=== PATIENT | male | born 1970 | race Caucasian/White ===

== ENCOUNTER 2025-08-17 14:56 | Outpatient (CLI) | payer BC, MEDICAID, SELFPAY ==
--- OUTSIDE RECORDS SUMMARY | 2025-07-07 17:00 | XMS_ITS | Encounter Summary ---
Author Organization [facility] ([place], [place], [place], [place], [place]) Address [address] [place] [address] Care Team Providers Care Vine Fruit Farming Supervisor Name Role Phone Kj Fisher MD Primary Care Provider [phone] Encounter Details Date Type Department Care Team (Latest Contact Info) Description 07/07/2025 6:00 PM EDT Lab Patient [facility] [address] [place] [phone] Swelling of left knee joint (Primary Dx) Social History Tobacco Use Types Packs/Day Years Used Date Smoking Tobacco: Never Assessed Sex and Gender Information Value Date Recorded Sex Assigned at Not on file Legal Sex Male 4:06 PM CDT Gender Identity Not on file Sexual Orientation Not on file documented as of this encounter Plan of Treatment Pending Results Name Type Priority Associated Diagnoses Date /Time Fungus Culture W/JOCELYN Or Anabell Ink Microbiology Routine Swelling of left knee joint 07/07/2025 6:26 PM EDT AFB Culture And Stain Microbiology Routine Swelling of left knee joint 07/07/2025 6:26 PM EDT documented as of this encounter Procedures Procedure Name Priority Date/Time Associated Diagnosis Comments [facility] DIFFERENTIAL, BODY FLUID Routine 07/07/2025 6:26 PM EDT Swelling of left knee joint AFB CULTURE AND STAIN Routine 07/07/2025 6:26 PM EDT Swelling of left knee joint FUNGUS CULTURE W/JOCELYN OR ANABELL INK Routine 07/07/2025 6:26 PM EDT Swelling of left knee joint ANAEROBIC CULTURE, EXTENDED (P.ACNES) Routine 07/07/2025 6:26 PM EDT Swelling of left knee joint BODY FLUID CRYSTALS Routine 07/07/2025 6 :26 PM EDT Swelling of left knee joint BODY FLUID CULTURE + GRAM STAIN Routine 07/07/2025 6:26 PM EDT Swelling of left knee joint BODY FLUID CELL COUNT WITH DIFFERENTIAL Routine 07/07/2025 6:26 PM EDT Swelling of left knee joint documented in this encounter Results * DIFFERENTIAL, BODY FLUID (07/07/2025 6:26 PM EDT) Neutrophils Fluid 50 0 - 25 % 07/07/2025 7:23 PM EDT [facility] Lymphocytes Fluid 33 % 07/07/2025 7:23 PM EDT [facility] EOSINOPHILS 2 07/07/2025 7:23 PM EDT [facility] MONO/MACROPHAGE FLUID 15 07/07/2025 7:23 PM EDT [facility] Synovial Fluid STRUCTURE OF LEFT KNEE REGION / Unknown 07/07/2025 6:26 PM EDT 07/07/2025 6:26 PM EDT Pio Mcnair MD BODY FLUIDS AND STOOLS ORDERABLES Final Result [facility] [address] [place] [address] * Body fluid crystals (07/07/2025 6:26 PM EDT) BODY FLUID TYPE Synovial 07/07/2025 6:44 PM EDT [facility] Ca Phos Shanice, UA Absent Absent 07/07/2025 6:44 PM EDT [facility] Monosodium Urate Absent Absent 07/07/2025 6:44 PM EDT [facility] Body Fluid Crystals No crystals seen. No crystals seen., See Comment 07/07/2025 6:44 PM EDT [facility] Synovial Fluid KNEE JOINT STRUCTURE / Unknown 07/07/2025 6:26 PM EDT 07/07/2025 6:26 PM EDT Narrative [facility] - 07/07/2025 6:44 PM EDT Under polarized light, corticosteroids may appear identical to monosodium urates or calcium pyrophosphates, so please correlate with any history of intra-articular injection of steroids. Pio Mcnair MD BODY FLUIDS AND STOOLS ORDERABLES Final Result Performing Organization Address City/[facility]/ZIP Co de Phone Number [facility] [address] [employer] [address] [phone] * (ABNORMAL) Body fluid cell count with differential (07/07/2025 6:26 PM EDT) Appearance Bloody(A) Clear 07/07/2025 7:24 PM EDT [facility] Color Red 07/07/2025 7:24 PM EDT [facility] BODY FLUID TYPE Synovial 7:24 PM EDT [facility] Auto WBC/Nucleated Cells BF 3,854 /uL 07/07/2025 7:24 PM EDT [facility] Comment: Please refer to specific WBC/Nucleated Cell Count Body Fluid reference ranges below: For Pleural: 0-1000 Peritoneal: 0-1000 Pericardial:0-1000 Synovial: 0-200 Auto RBC BF 3,812,000 /uL 07/07/2025 7:24 PM EDT [facility] Comment: Please refer to specific RBC Cell Count Body Fluid reference ranges below: Pleural: 0-10,000 Peritoneal: 0-10,000 Pericardial:0-10,000 Synovial:0-30 Synovial Fluid STRUCTURE OF LEFT KNEE REGION / Unknown 07/07/2025 6:26 PM EDT 07/07/2025 6:26 PM EDT Narrative [facility] - 07/07/2025 7:24 PM EDT There is normally no readily obtainable pleural, peritoneal and pericardial fluid, hence normal elements for these potential fluids are not defined. Pio Mcnair MD BODY FLUIDS AND STOOLS ORDERABLES Final Result Performing Organization Address City/[facility]/ZIP Co de Phone Number [facility] [address] [phone] * Anaerobic Culture, Extended (P.acnes) (07/07/2025 6:26 PM EDT) Result No anaerobic growth at 14 days. No Cutibacterium acnes (formerly Propionibacterium acnes) isolated 07/23/2025 8:31 AM EDT [facility] Surgical Swab STRUCTURE OF LEFT KNEE REGION / Unknown 07/07/2025 6:26 PM EDT 07/07/2025 6:26 PM EDT Pio Mcnair MD MICROBIOLOGY - GENERAL ORDERABLES Final Result [facility] [address] [phone] * Body Fluid Culture + Gram Stain (07/07/2025 6:26 PM EDT) Result No growth 07/11/2025 7:41 AM EDT [facility] Gram Stain Result No organisms seen 07/11/2025 7:41 AM EDT [facility] Gram Stain Result No cells seen 07/11/2025 7:41 AM EDT [facility] Synovial Fluid STRUCTURE OF LEFT KNEE REGION / Unknown 07/07/2025 6:26 PM EDT 07/07/2025 6:26 PM EDT Pio Mcnair MD MICROBIOLOGY - GENERAL ORDERABLES Final Result [facility] [address] [place] [address], [facility] [phone] documented in this encounter Visit Diagnoses Diagnosis Swelling of left knee joint- Primary Effusion of lower leg joint documented in this encounter Care Teams Vine Fruit Farming Supervisor Relationship Specialty Start Date End Date Kj Fisher MD [address] [place] [phone] PCP - General Family Medicine 06/10/25 documented as of this encounter
--- OUTSIDE RECORDS SUMMARY | 2025-08-17 15:00 | XMS_ITS | Clinical Summary ---
Author Organization [facility] Address [address] [place] [address] Care Team Providers Care Vacuum Conditioner Operator Name Role Phone Kj Fisher MD Primary Care Provider [phone] Allergies No known active allergies Medications multivitamin with minerals tablet tablet Take 1 tablet by mouth Daily. Active Iron-Vitamin C 100-250 MG tablet Take 1 tablet by mouth Daily. Active vitamin B-12 (CYANOCOBALAMIN ) 500 MCG tablet Take 1 tablet by mouth Daily. Active Calcium Citrate 250 MG tablet Take 1 tablet by mouth Daily. Active Cholecalciferol 25 MCG (1000 UT) tablet Take 1 tablet by mouth Daily. Active PHARMACY MEDS TO BED CONSULT Use Daily. 02/27/2024 Act stacie benzonatate (TESSALON) 100 MG capsule Take 1 capsule by mouth 3 (Three) Times a Day As Needed for Cough. 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 05/22/2018 Moderate persistent asthma 05/22/2018 Heel pain, chronic, left 11/24/2016 H/O: gout 01/12/2016 BMI 60.0-69.9, adult 08/03/2014 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 08/03/2014 Obstructive sleep apnea syndrome 10/14/2008 Depression Hyperlipidemia Hypertension Fibromyalgia Resolved Problems Problem Noted Date Diagnosed Date Resolved Date Acute hypoxemic respiratory failure due to COVID-19 05/25/2021 05/29/2021 Hypomagnesemia 05/29/2021 Immunizations Immunization Administration Dates Next Due Flu Vaccine Split Quad 07/25/2016,08/03/2014, Fluzone (or Fluarix & Flulav al for VFC) >6mos 07/20/2020 Fluzone Quad >6mos (Multi-dose) 07/13/2019,07/24 Influenza, Unspecified 07/14/2019 Pneumococcal Polysaccharide (PPSV23) 05/23/2018 Td (TDVAX) 09/28/2002 Tdap 08/03/2014 Family History Medical History Relation Name Comments Prostate cancer Father Arthritis Maternal Grandfather Diabetes Maternal Grandfather Asthma Mother Hypertension Mother Relation Name Status Comments Father Alive Maternal Grandfather Mother Alive Social History Tobacco Use Types Packs/Day Years Used Date Smoking Tobacco: Never Smokeless Tobacco: Never Alcohol Use Standard Drinks/Week Comments No 0 (1 standard drink = 0.6 oz pur e alcohol) [facility] Utilities Answer Date Recorded In the past 12 months has [employer], [employer], or water [employer] threatened to shut off services in your home? No 02/26/2024 AUDIT-C Answer Date Recorded Q1: How often do you have a drink containing alcohol? Never 02/25/2024 Q2: How many drinks containi ng alcohol do you have on a typical day when you are drinking? Patient does not drink Q3: How often do you have si x or more drinks on one occasion? Never 02/25/2024 PHQ-2 Answer Date Recorded PHQ-2 Score 0 09/16/2019 Exercise Vital Sign Answer Date Recorde d On average, how many days pe r week do you engage in moderate to strenuous exercise (like a brisk walk)? 0 days 02/26/2024 On average, how many minutes do you engage in exercise at this level? 0 min 02/26/2024 Hunger Vital Sign Answer Date Recorded Within the past 12 months, y ou worried that your food would run out before you got the money to buy more. Never true 02/26/20 24 Within the past 12 months, t he food you bought just didn't last and you didn't have money to get more. Never true 02/26/2024 PRAPARE - Transportation Answer Date Re corded In the past 12 months, has l ack of transportation kept you from medical appointments or from getting medications? No 02/11 In the past 12 months, has l ack of transportation kept you from meetings, work, or from getting things needed for daily living? No 02/26/2024 Abuse Screen Answer Date Recorded Feels Unsafe at Home or Work/School no 02/25/2024 Feels Threatened by Someone no 02/11 Does Anyone Try to Keep You From Having Contact with Others or Doing Things Outside Your Home? no 02/25/2024 Physical Signs of Abuse Present no 02/25/2024 Housing Stability Answer Date Recorded Current Living Arrangements home 02/11 Potentially Unsafe Housing Conditions unable to assess 02/26/2024 Family and Community Support Answer Sarkis e Recorded Help with Day-to-Day Activities Not on file 07/25/2023 Lonely or Isolated Not on file 07/25/2023 Employment Answer Date Recorded Do you want help finding or keeping work or a payton b? Not on file 07/25/2023 Disabilities Answer Date Recorded Difficulty Concentrating, Remembering or Making Decisions no 02/25/2024 Difficulty Managing Errands Independently no 02/25/2024 Education Answer Date Recorded Help with school or training? Not on file Preferred Language Northern Irish 02/26/2024 Sex and Gender Information Value Date Recorded Sex Assigned at Male 07/25/2020 2:35 PM EDT Legal Sex Male 8:20 AM EST Gender Identity Male 07/25/2020 2:35 PM EDT Sexual Orientation Straight 07/25/2020 2: 35 PM EDT Last Filed Vital Signs Vital Sign Reading Time Taken Comments Blood Pressure 144/92 02/27/2024 7:15 AM EDT Pulse 78 02/27/2024 7:41 AM EDT Temperature 36.6 C (97.8 F) 02/27/2024 7:15 AM EDT Respiratory Rate 18 02/27/2024 7:15 AM EDT Oxygen Saturation 94% 02/27/2024 7:15 AM EDT Inhaled Oxygen Concentration - - Weight 183 kg (403 lb 7.1 oz) 02/25/2024 5:01 PM EDT Height 172 cm (5' 7.72 ) 02/25/2024 5:01 PM EDT Body Mass Index 61.86 02/25/2024 5:01 PM EDT Plan of Treatment Health Maintenance Due Date Last Done Comments COLOGUARD 2016 COLON CANCER SCREENING 5 Y[address] SIG[address] COLONOGRAPHY 2016 FECAL OCCULT BLOOD TEST 2016 FIT Testing (1 year) 2016 Pneumococcal Vaccine 50+ (2 of 2 - PCV) 05/23/2019 05/23/2018 ZOSTER VACCINE (1 of 2) 2021 ANNUAL PHYSICAL 12/07/2021 12/07/2020, 12/09/2019 LIPID PANEL 06/07/2022 06/07/2021, 11/15, 06/08/2020, Additional history exists TDAP/TD VACCINES (3 - Td or Tdap) 08/03/2024 014, 09/28/2002 INFLUENZA VACCINE 05/14/2025 07/20/2020, , 07/13/2019, Additional history exists COLONOSCOPY 07/27/2030 07/27/2020, 07/27/2020 COLORECTAL CANCER SCREENING 07/27/2030 HEPATITIS C SCREENING Completed 06/08/2020 Procedures Procedure Name Priority Date/Time Associated Diagnosis Comments LIPID PANEL W/ CHOL/HDL RATIO Routine 06/07/2021 10:30 AM EDT Hospital discharge follow-up Elevated LDL cholesterol level Prediabetes SCANNED - COLONOSCOPY 07/27/2020 HEPATITIS C ANTIBODY Routine 06/08/2020 12:00 PM EDT Encounter for hepatitis C screening test for low risk patient from Last 3 Months or Most Recently Relevant to Health Maintenance Results * (ABNORMAL) Lipid Panel With / Chol / HDL Ratio (06/07/2021 10:30 AM EDT) [facility] Signature Total Cholesterol 143 0 - 200 mg/dL [facility] Comment: Cholesterol Reference Ranges (U.S. Department of Health and Human Services ATP III Classifications) Desirable <200 mg/dL Borderline High 200-239 mg/dL High Risk >240 mg/dL Triglyceride Reference Ranges (U.S. Department of Health and Human Services ATP III Classifications) Normal <150 mg/dL Borderline High 150-199 mg/dL High 200-499 mg/dL Very High >500 mg/dL HDL Reference Ranges (U.S. Department of Health and Human Services ATP III Classifcations) Low <40 mg/dl (major risk factor for CHD) High >60 mg/dl ('negative' risk factor for CHD) LDL Reference Ranges (U.S. Department of Health and Human Services ATP III Classifcations) Optimal <100 mg/dL Near Optimal 100-129 mg/dL Borderline High 130-159 mg/dL High 160-189 mg/dL Very High >189 mg/dL Triglycerides 165(H) 0 - 150 mg/dL [facility] HDL Cholesterol 40 40 - 60 mg/dL [facility] VLDL Cholesterol Ravinder 28 5 - 40 mg/dL [facility] LDL Chol Calc (NIH) 75 0 - 100 mg/dL [facility] Chol/HDL Ratio 3.58 [facility] Blood 06/07/2021 10:3 0 AM EDT 06/07/2021 Narrative [facility]) - 06/08/2021 3:07 AM EDT Performed at: [address] [place] [id number] Television Script Writer: Jake Lemons MD, Phone: [phone] Patient Fasting: Y us Abbie Felix DO LAB BLOOD ORDERABLES Final Result [facility] [employer] [facility] ([facility]) [address] [place] [address], [place] [phone] [facility] [address] [place] [address], [place] [phone] * SCANNED - COLONOSCOPY (07/27/2020) Jackson Davis MD CHART REVIEW TABS Lashell starr Result * Hepatitis C Antibody (06/08/2020 12:00 PM EDT) Hep C Virus Ab <0.1 0.0 - 0.9 s/co ratio [facility] Comment: Negative: < 0.8 Indeterminate: 0.8 - 0.9 Positive: > 0.9 The CDC recommends that a positive HCV antibody result be followed up with a HCV Nucleic Acid Amplification test (405254). Blood 06/08/2020 12:0 0 PM EDT 06/08/2020 Narrative [facility] ([facility]) - 06/09/2020 4:07 AM EDT Performed at: [address] [id number] Television Script Writer: Chandler Mcmahan PhD, Phone: [phone] Patient Fasting: Y Abbie Felix DO LAB BLOOD ORDERABLES Final Result [facility] (AMBULATORY) [address] [place] [address], [place] [phone] [facility] [address] [place] [address], [place] [phone] from Last 3 Months or Most Recently Relevant to Health Maintenance Insurance [facility] PPO Advance Directives Documents on File Type Date Recorded Patient Payroll Technician Expl anation PATIENT ADVANCE DIRECTIVES - SCAN 07/27/2020 11:43 AM HEALTH CARE DIRECTIV FAY Meza, 07/27/2020 * CPR (Attempt to Resuscitate) (Latest Code Status on File) Date Activated Date Inactivated Comments 02/25/2024 3:39 PM 02/27/2024 3:26 PM Question Answer Comments Code Status (Patient has no pulse and is not breathing): CPR (Attempt to Resuscitate) Medical Interventions (Patie nt has pulse or is breathing): Full Support Level Of Support Discussed With: Patient * CPR (Attempt to Resuscitate) Date Activated Date Inactivated Comments 05/25/2021 7:31 AM 05/29/2021 3:44 PM Question Answer Comments Code Status (Patient has no pulse and is not breathing): CPR (Attempt to Resuscitate) Medical Interventions (Patie nt has pulse or is breathing): Full Level Of Support Discussed With: Patient Care Teams Vacuum Conditioner Operator Relationship Specialty Start Date End Date Kj Fisher MD [address] [place] [address] [place] [address] PCP - General Family Medicine 02/25/24
--- OUTSIDE RECORDS SUMMARY | 2025-08-17 15:00 | XMS_ITS | Referral Summary ---
Author Organization [employer] ([place], [place], [place], [place], [place]) Address [address] [place] [address] Care Team Providers Care Machine Overhauler Name Role Phone Kj Fisher MD Primary Care Provider [phone] Encounters Date Type Department Care Team Description 07/07/2025 6:00 PM EDT Lab Patient Walk-In [address] [address] Swelling of left knee joint (Primary Dx) 06/09/2025 5:30 PM EDT Lab Patient Walk-In [facility] [address] [place] [address] Swelling of right knee joint (Primary Dx) 05/26/2025 4:15 PM EDT Lab Patient Walk-In [address] [address] History of total right knee replacement (Primary Dx) from Last 3 Months Social History Tobacco Use Types Packs/Day Years Used Date Smoking Tobacco: Never Assessed Sex and Gender Information Value Date Recorded Sex Assigned at Not on file Legal Sex Male 4:06 PM CDT Gender Identity Not on file Sexual Orientation Not on file Plan of Treatment Not on file Procedures Procedure Name Priority Date/Time Associated Diagnosis [...] left knee joint FUNGUS CULTURE W/JOCELYN OR DIDI INK Routine 07/07/2025 6:26 PM EDT Swelling of left knee joint [facility] DIFFERENTIAL, BODY FLUID Routine 06/09/2025 6:41 PM EDT Swelling of right knee joint BODY FLUID CRYSTALS Routine 06/09/2025 6 :41 PM EDT Swelling of right knee joint BODY FLUID CELL COUNT WITH DIFFERENTIAL Routine 06/09/2025 6:41 PM EDT Swelling of right knee joint AFB CULTURE AND STAIN Routine 06/09/2025 6:41 PM EDT Swelling of right knee joint ANAEROBIC CULTURE, EXTENDED (P.ACNES) Routine 06/09/2025 6:41 PM EDT Swelling of right knee joint BODY FLUID CULTURE + GRAM STAIN Routine 06/09/2025 6:41 PM EDT Swelling of right knee joint FUNGUS CULTURE W/JOCELYN OR DIDI INK Routine 06/09/2025 6:41 PM EDT Swelling of right knee joint SJ DIFFERENTIAL, BODY FLUID Routine 05/26/2025 5:16 PM EDT History of total right knee replacement BODY FLUID CRYSTALS Routine 05/26/2025 5 :16 PM EDT History of total right knee replacement BODY FLUID CELL COUNT WITH DIFFERENTIAL Routine 05/26/2025 5:16 PM EDT History of total right knee replacement AFB CULTURE AND STAIN Routine 05/26/2025 5:16 PM EDT History of total right knee replacement ANAEROBIC CULTURE, EXTENDED (P.ACNES) Routine 05/26/2025 5:16 PM EDT History of total right knee replacement BODY FLUID CULTURE + GRAM STAIN Routine 05/26/2025 5:16 PM EDT History of total right knee replacement FUNGUS CULTURE W/JOCELYN OR DIDI INK Routine 05/26/2025 5:16 PM EDT History of total right knee replacement from Last 3 Months Results * DIFFERENTIAL, BODY FLUID (07/07/2025 6:26 PM EDT) Only the most recent of3 resultswithin the time period is included. Neutrophils Fluid 50 0 - 25 % 07/07/2025 7:23 PM EDT [facility] Lymphocytes Fluid 33 % 07/07/2025 7:23 PM EDT [facility] EOSINOPHILS 2 07/07/2025 7:23 PM EDT [facility] MONO/MACROPHAGE FLUID 15 07/07/2025 7:23 PM EDT [facility] Synovial Fluid STRUCTURE OF LEFT KNEE REGION / Unknown 07/07/2025 6:26 PM EDT 07/07/2025 6:26 PM EDT Pio Mcnair MD BODY FLUIDS AND STOOLS ORDERABLES Final Result [facility] [address] [phone] * Anaerobic Culture, Extended (P.acnes) (07/07/2025 6:26 PM EDT) Only the most recent of3 resultswithin the time period is included. Result No anaerobic growth at 14 days. No Cutibacterium acnes (formerly Propionibacterium acnes) isolated 07/23/2025 8:31 AM EDT [facility] Surgical Swab STRUCTURE OF LEFT KNEE REGION / Unknown 07/07/2025 6:26 PM EDT 07/07/2025 6:26 PM EDT Pio Mcnair MD MICROBIOLOGY - GENERAL ORDERABLES Final Result Performing Organization Address [facility] Co de Phone Number [facility] [address] [place] [address], [facility] [phone] * Body fluid crystals (07/07/2025 6:26 PM EDT) Only the most recent of3 resultswithin the time period is included. BODY FLUID TYPE Synovial 07/07/2025 6:44 PM EDT [facility] Ca Phos Shanice, UA Absent Absent 07/07/2025 6:44 PM EDT [facility] Monosodium Urate Absent Absent 07/07/2025 6:44 PM EDT [facility] Body Fluid Crystals No crystals seen. No crystals seen., See Comment 07/07/2025 6:44 PM EDT [facility] Synovial Fluid KNEE JOINT STRUCTURE / Unknown 07/07/2025 6:26 PM EDT 07/07/2025 6:26 PM EDT Narrative [facility] - 07/07/2025 6:44 PM EDT Under polarized light, corticosteroids may appear identical to monosodium urates or calcium pyrophosphates, so please correlate with any history of intra-articular injection of steroids. Pio Mcnair MD BODY FLUIDS AND STOOLS ORDERABLES Final Result Performing Organization Address City/[facility]/ZIP Co de Phone Number [facility] [address] [place] [address], [facility] [phone] * Body Fluid Culture + Gram Stain (07/07/2025 6:26 PM EDT) Only the most recent of3 resultswithin the time period is included. Result No growth 07/11/2025 7:41 AM EDT [facility] Gram Stain Result No organisms seen 07/11/2025 7:41 AM EDT [facility] Gram Stain Result No cells seen 07/11/2025 7:41 AM EDT [facility] Synovial Fluid STRUCTURE OF LEFT KNEE REGION / Unknown 07/07/2025 6:26 PM EDT 07/07/2025 6:26 PM EDT us Pio Mcnair MD MICROBIOLOGY - GENERAL ORDERABLES Final Result [facility] [address] [phone] * (ABNORMAL) Body fluid cell count with differential (07/07/2025 6:26 PM EDT) Only the most recent of3 resultswithin the time period is included. Appearance Bloody(A) Clear 07/07/2025 7:24 PM EDT [facility] Color Red 07/07/2025 7:24 PM EDT [facility] BODY FLUID TYPE Synovial 7:24 PM EDT [facility] Auto WBC/Nucleated Cells BF 3,854 /uL 07/07/2025 7:24 PM EDT [facility] Comment: Please refer to specific WBC/Nucleated Cell Count Body Fluid reference ranges below: For Pleural: 0-1000 Peritoneal: 0-1000 Pericardial:0-1000 Synovial: 0-200 Auto RBC BF 3,812,000 /uL 07/07/2025 7:24 PM EDT [facility] Comment: Please refer to specific RBC Cell Count Body Fluid reference ranges below: Pleural: 0-10,000 Peritoneal: 0-10,000 Pericardial:0-10,000 Synovial:0-30 Synovial Fluid STRUCTURE OF LEFT KNEE REGION / Unknown 07/07/2025 6:26 PM EDT 07/07/2025 6:26 PM EDT Narrative [facility] - 07/07/2025 7:24 PM EDT There is normally no readily obtainable pleural, peritoneal and pericardial fluid, hence normal elements for these potential fluids are not defined. us Pio Mcnair MD BODY FLUIDS AND STOOLS ORDERABLES Final Result [facility] [address] [place] [address], [facility] [phone] * AFB Culture And Stain (06/09/2025 6:41 PM EDT) Only the most recent of2 resultswithin the time period is included. Result No Acid Fast Bacilli isolated at 6 weeks 07/21/2025 7:00 PM EDT [facility] AFB Smear No acid fast bacilli seen 07/21/2025 7:00 PM EDT [facility] Synovial Fluid STRUCTURE OF RIGHT KNEE REGION / Unknown 06/09/2025 6:41 PM EDT 06/09/2025 6:41 PM EDT Pio Mcnair MD MICROBIOLOGY - GENERAL ORDERABLES Final Result Performing Organization Address [facility] Co de Phone Number [facility] [address] [phone] * Fungus Culture W/JOCELYN Or Didi Ink (06/09/2025 6:41 PM EDT) Only the most recent of2 resultswithin the time period is included. Result No fungus isolated at 6 weeks. 07/21/2025 7:00 PM EDT [facility] JOCELYN Prep No fungal elements seen 07/21/2025 7:00 PM EDT [facility] Synovial Fluid STRUCTURE OF RIGHT KNEE REGION / Unknown 06/09/2025 6:41 PM EDT 06/09/2025 6:41 PM EDT Pio Mcnair MD MICROBIOLOGY - GENERAL ORDERABLES Final Result Performing Organization Address City/[facility]/ZIP Co de Phone Number [facility] [address] [place] [address], [facility] [phone] from Last 3 Months Insurance BLUE CROSS/BLUE SHIELD [employer] [facility] Care Teams Machine Overhauler Relationship Specialty Start Date End Date Kj Fisher MD [address] [place] [address] PCP - General Family Medicine 06/10/25
--- OUTSIDE RECORDS SUMMARY | 2025-08-17 15:00 | XMS_ITS | Clinical Summary ---
Author Organization [employer] ([place], [place], [place], [place], [place]) Address [address] [place] [address] Care Team Providers Care Electronic Service Technician Name Role Phone Kj Fisher MD Primary Care Provider [phone] Encounters Date Type Department Care Team Description 07/07/2025 6:00 PM EDT Lab Patient Walk-In [facility] [address] [place] [address] Swelling of left knee joint (Primary Dx) 06/09/2025 5:30 PM EDT Lab Patient Walk-In [facility] [address] [place] [address] Swelling of right knee joint (Primary Dx) 05/26/2025 4:15 PM EDT Lab Patient Walk-In [facility] [address] [place] [address] History of total right knee replacement (Primary Dx) from Last 3 Months Social History Tobacco Use Types Packs/Day Years Used Date Smoking Tobacco: Never Assessed Sex and Gender Information Value Date Recorded Sex Assigned at Not on file Legal Sex Male 4:06 PM CDT Gender Identity Not on file Sexual Orientation Not on file Plan of Treatment Health Maintenance Due Date Last Done Comments CT Colonography 1971 Colonoscopy 1971 Colorectal Cancer Screening 1971 FOBT/FIT 1971 Fit-DNA (Cologuard) 1971 Sigmoidoscopy 1971 Depression Screening (12+) 1983 Tobacco Cessation Counseling and Screening (12+) 1983 HIV Screening 1986 Hepatitis C Screening 1989 Lipid Panel 08/04/2019 08/04/2014, 09/30/2000 Pneumococcal 50+ years (2 of 2 - PCV) 05/20/202107/2018 Shingles Vaccine (Zoster) (1 of 2) 2021 DTAP/TDAP/TD VACCINES (3 - Td or Tdap) 08/03/2024, 09/28/2002 COVID-19 VACCINE ( - season) 2025 Influenza Vaccine (#1) 2025 Procedures Procedure Name Priority Date/Time Associated Diagnosis Comments [facility] DIFFERENTIAL, BODY FLUID Routine 07/07/2025 6:26 PM [...] PM EDT Swelling of left knee joint [facility] DIFFERENTIAL, BODY FLUID Routine 06/09/2025 6:41 PM [...] PM EDT Swelling of right knee joint [facility] DIFFERENTIAL, BODY FLUID Routine 05/26/2025 5:16 PM [...] - 25 % 07/07/2025 7:23 PM EDT [facility] Lymphocytes Fluid 33 % 07/07/2025 7:23 PM EDT [facility] EOSINOPHILS 2 07/07/2025 7:23 PM EDT [facility] MONO/MACROPHAGE FLUID 15 07/07/2025 7:23 PM EDT [facility] Synovial Fluid STRUCTURE OF LEFT KNEE REGION / Unknown 07/07/2025 6:26 PM EDT 07/07/2025 6:26 PM EDT Pio Mcnair MD BODY FLUIDS AND STOOLS ORDERABLES Final Result Performing Organization Address [facility] Phone Number [facility] [address] [place] [address], [facility] [phone] * Anaerobic Culture, Extended (P.acnes) (07/07/2025 6:26 PM EDT) Only the most recent of3 resultswithin the time period is included. Result No anaerobic growth at 14 days. No Cutibacterium acnes (formerly Propionibacterium acnes) isolated 07/23/2025 8:31 AM EDT [facility] Surgical Swab STRUCTURE OF LEFT KNEE REGION / Unknown 07/07/2025 6:26 PM EDT 07/07/2025 6:26 PM EDT Pio Mcnair MD MICROBIOLOGY - GENERAL ORDERABLES Final Result Performing Organization Address [facility] de Phone Number [facility] [address] [place] [address], [facility] [phone] * Body fluid crystals (07/07/2025 6:26 PM EDT) Only the most recent of3 resultswithin the time period is included. BODY FLUID TYPE Synovial 07/07/2025 6:44 PM EDT [facility] Ca Phos Shanice, UA Absent Absent 07/07/2025 6:44 PM EDT [facility] Monosodium Urate Absent Absent 07/07/2025 6:44 PM EDT [facility] Body Fluid Crystals No crystals seen. No crystals seen., See Comment 07/07/2025 6:44 PM EDT [facility] Synovial Fluid KNEE JOINT STRUCTURE / Unknown 07/07/2025 6:26 PM EDT 07/07/2025 6:26 PM EDT Narrative [facility] - 07/07/2025 6:44 PM EDT Under polarized light, corticosteroids may appear identical to monosodium urates or calcium pyrophosphates, so please correlate with any history of intra-articular injection of steroids. Pio Mcnair MD BODY FLUIDS AND STOOLS ORDERABLES Final Result Performing Organization Address [facility] Co de Phone Number [facility] [address] [phone] * Body Fluid Culture + Gram Stain (07/07/2025 6:26 PM EDT) Only the most recent of3 resultswithin the time period is included. Result No growth 07/11/2025 7:41 AM EDT [facility] Gram Stain Result No organisms seen 07/11/2025 7:41 AM EDT [facility] Gram Stain Result No cells seen 07/11/2025 7:41 AM EDT [facility] Synovial Fluid STRUCTURE OF LEFT KNEE REGION / Unknown 07/07/2025 6:26 PM EDT 07/07/2025 6:26 PM EDT Pio Mcnair MD MICROBIOLOGY - GENERAL ORDERABLES Final Result Performing Organization Address [facility] Co de Phone Number [facility] [address] [phone] * (ABNORMAL) Body fluid cell count with differential (07/07/2025 6:26 PM EDT) Only the most recent of3 resultswithin the time period is included. Appearance Bloody(A) Clear 07/07/2025 7:24 PM EDT [facility] Color Red 07/07/2025 7:24 PM EDT [facility] BODY FLUID TYPE Synovial 7:24 PM EDT [facility] Auto WBC/Nucleated Cells BF 3,854 /uL 07/07/2025 7:24 PM EDT [facility] Comment: Please refer to specific WBC/Nucleated Cell Count Body Fluid reference ranges below: For Pleural: 0-1000 Peritoneal: 0-1000 Pericardial:0-1000 Synovial: 0-200 Auto RBC BF 3,812,000 /uL 07/07/2025 7:24 PM EDT [facility] Comment: Please refer to specific RBC Cell Count Body Fluid reference ranges below: Pleural: 0-10,000 Peritoneal: 0-10,000 Pericardial:0-10,000 Synovial:0-30 Synovial Fluid STRUCTURE OF LEFT KNEE REGION / Unknown 07/07/2025 6:26 PM EDT 07/07/2025 6:26 PM EDT Narrative [facility] - 07/07/2025 7:24 PM EDT There is normally no readily obtainable pleural, peritoneal and pericardial fluid, hence normal elements for these potential fluids are not defined. Pio Mcnair MD BODY FLUIDS AND STOOLS ORDERABLES Final Result Performing Organization Address City/[facility] Co de Phone Number [facility] [address] [phone] * AFB Culture And Stain (06/09/2025 6:41 PM EDT) Only the most recent of2 resultswithin the time period is included. Result No Acid Fast Bacilli isolated at 6 weeks 07/21/2025 7:00 PM EDT [facility] AFB Smear No acid fast bacilli seen 07/21/2025 7:00 PM EDT [facility] Synovial Fluid STRUCTURE OF RIGHT KNEE REGION / Unknown 06/09/2025 6:41 PM EDT 06/09/2025 6:41 PM EDT Pio Mcnair MD MICROBIOLOGY - GENERAL ORDERABLES Final Result Performing Organization Address City/[facility]/ZIP Co de Phone Number [facility] [address] [place] [address], [facility] [phone] * Fungus Culture W/JOCELYN Or Didi Ink (06/09/2025 6:41 PM EDT) Only the most recent of2 resultswithin the time period is included. Result No fungus isolated at 6 weeks. 07/21/2025 7:00 PM EDT [facility] JOCELYN Prep No fungal elements seen 07/21/2025 7:00 PM EDT [facility] Synovial Fluid STRUCTURE OF RIGHT KNEE REGION / Unknown 06/09/2025 6:41 PM EDT 06/09/2025 6:41 PM EDT us Pio Mcnair MD MICROBIOLOGY - GENERAL ORDERABLES Final Result [facility] [address] [place] [id number] [phone] from Last 3 Months Insurance BLUE CROSS/BLUE SHIELD [employer] [facility] Care Teams Electronic Service Technician Relationship Specialty Start Date End Date Kj Fisher MD [address] [place] [phone] PCP - General Family Medicine 06/10/25
--- OUTSIDE RECORDS SUMMARY | 2025-08-17 15:01 | XMS_ITS | Data Portability ---
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 Plan of Treatment Reminders Order Date Submit Date Provider Last Modified By Organization Details Last Modified Time Details Appointments RECHECK 2024 10:00A Brinda FISHER MD Not available Not available Not available Lab vitamin B12 + folate, serum or blood 2024 025 [facility], [address] [place] [address], [address], 07/06/2025 16:48:15 vitamin D, 25-hydrox y, total, serum 2024 025 [facility], [address] [place] [address], [address], 07/06/2025 16:48:16 iron + total iron-bind ing capacity (TIBC), serum 2024 025 [facility], [address] [place] [address], [address], 07/06/2025 14:25:23 ferritin, serum or plasma 2024 025 [facility], [address] [place] [address], [address], 07/06/2025 14:25:20 vitamin B1 (thiamine ), blood 2024 025 [facility], [address] [place] [address], [address], 07/12/2025 11:06:44 CBC w/ auto diff 2024 025 [facility], [address] [place] [address], [address], 07/06/2025 14:00:16 CMP, serum or plasma 2024 025 [facility], [address] [place] [address], [address], 07/06/2025 14:25:22 influenza virus A + B and SARS CoV 2, QL, NANA+probe , respirato ry specimen 2024 025 [facility], [address] [place] [address], [id number], 10/16/2024 11:09:49 Referral general surgeon referral 2024 025 [email or web address] Patti Arreguin MD, [address] [place] [address], [id number], 12/01/2024 10:38:47 Procedures None recorded. Surgeries None recorded. Imaging US, lower leg 2024 025 [facility], [address] [place] [address], [id number], 10/21/2024 08:56:29 Medication Orders calcium 500 mg (as citrate)- vit D3 12.5 mcg (500 unit) chewable tablet 2024 025 [facility], [facility] [place], [address], 06/04/2025 15:57:45 melatonin 5 mg tablet 2024 025 [facility] #[id number], [address], [place], [id number], 06/22/2025 12:47:08 nystatin 100,000 unit/gram topical powder 2024 025 [facility] #[id number], [address], [place], [id number], 03/02/2025 16:06:53 nystatin 100,000 unit/gram topical powder 2024 025 [facility] #[id number], [address], [place], [id number], 12/01/2024 10:17:26 omeprazol e 40 mg capsule,d elayed release 2024 025 [facility] #[id number], [address], [place], [id number], 12/01/2024 10:17:26 oseltamiv ir 75 mg capsule 2024 025 [facility] #[id number], [address], [place], [id number], 12/01/2024 09:50:23 nystatin 100,000 unit/gram topical powder 2024 025 [facility] #[id number], [address], [place], [id number], 10/16/2024 11:09:54 clotrimaz ole-betam ethasone 1 %-0.05 % topical cream 2024 025 [facility] #[id number], [address], [place], [id number], 10/16/2024 11:09:56 Patient TargetsNo targets recorded. Patient InstructionsNo instructions recorded. Reason for Referral General Surgeon Referral for Mass of lower limb Referring Physician: Ruben Fisher, Family Medicine, Encounter Date: 12/01/2024 Results Created Date Observation Date Name Description Value Unit Range Abnormal Flag Note LastModifiedBy Organization Detail LastModifiedTime 10/13/20 24 10/13/2024 strep group A, DNA, swab Strep A negati ve Not Available [facility] [address], [address], 10/13/2024 08:24:46 10/13/20 24 10/13/2024 strep group A, DNA, swab Procedural Control Valid Not Available [facility] [address], [address], 10/13/2024 08:24:46 10/16/19 25 10/16/2024 influ panchito virus A + B and SARS CoV 2, QL, ANNA+p robe, respi rator y speci men Unknown Analyte POSITI VE (Abnor mal) Not Available [address], [address], 10/16/2024 10:26:22 10/16/19 25 10/16/2024 influ panchito virus A + B and SARS CoV 2, QL, ANNA+p robe, respi rator y speci men Unknown Analyte Negati ve Not Available [address], [address], 10/16/2024 10:26:22 10/16/19 25 10/16/2024 influ panchito virus A + B and SARS CoV 2, QL, ANNA+p robe, respi rator y speci men Unknown Analyte Negati ve Not Available [address], [address], 10/16/2024 10:26:22 10/16/19 25 10/16/2024 influ panchito virus A + B and SARS CoV 2, QL, ANNA+p robe, respi rator y speci men Unknown Analyte Valid Not Available [address], [address], 10/16/2024 10:26:22 11/30/19 25 11/30/2024 COMPL ETE BLOOD COUNT white blood cells 8.0 10*3/ uL 3.8-10 .8 normal Not Available [facility] [address] [place] [address], [address], 11/30/2024 13:16:28 11/30/19 25 11/30/2024 COMPL ETE BLOOD COUNT red blood cells 4.89 10*6/ uL 4.20-5 .80 normal Not Available [facility] [address] [place] [address], [address], 11/30/2024 13:16:28 11/30/19 25 11/30/2024 COMPL ETE BLOOD COUNT hemoglobin 15.0 g/dL 14.0-1 8.0 normal Not Available [facility] [address] [place] [address], [address], 11/30/2024 13:16:28 11/30/19 25 11/30/2024 COMPL ETE BLOOD COUNT hematocrit 43.5 % 40.0-5 2.0 normal Not Available [facility] [address] [place] [address], [address], 11/30/2024 13:16:28 11/30/19 25 11/30/2024 COMPL ETE BLOOD COUNT MCV 89 fL 80-100 normal Not Available [facility] [address] [place] [address], [address], 11/30/2024 13:16:28 11/30/19 25 11/30/2024 COMPL ETE BLOOD COUNT MCH 31 pg 26-35 normal Not Available [facility] [address] [place] [address], [address], 11/30/2024 13:16:28 11/30/19 25 11/30/2024 COMPL ETE BLOOD COUNT MCHC 35 g/dL 32-36 normal Not Available [facility] [address] [place] [address], [address], 11/30/2024 13:16:28 11/30/19 25 11/30/2024 COMPL ETE BLOOD COUNT RDW 14.1 % 11.0-1 5.0 normal Not Available [facility] [address] [place] [address], [address], 11/30/2024 13:16:28 11/30/19 25 11/30/2024 COMPL ETE BLOOD COUNT MPV 10.3 fL 6.2-10 .5 normal Not Available [facility] [address] [place] [address], [address], 11/30/2024 13:16:28 11/30/19 25 11/30/2024 COMPL ETE BLOOD COUNT platelet count 181 10*3/ uL 150-40 0 normal Not Available [facility] [address] [place] [address], [address], 11/30/2024 13:16:28 11/30/19 25 11/30/2024 COMPL ETE BLOOD COUNT neutrophil,a bsolute 4.8 10*3/ uL 1.6-8. 4 normal Not Available [facility] [address] [place] [address], [address], 11/30/2024 13:16:28 11/30/19 25 11/30/2024 COMPL ETE BLOOD COUNT lymphocyte,a bsolute 2.5 10*3/ uL 0.4-5. 1 normal Not Available [facility] [address] [place] [address], [address], 11/30/2024 13:16:28 11/30/19 25 11/30/2024 COMPL ETE BLOOD COUNT monocyte,abs olute 0.6 10*3/ uL 0.0-1. 2 normal Not Available [facility] [address] [place] [address], [address], 11/30/2024 13:16:28 11/30/19 25 11/30/2024 COMPL ETE BLOOD COUNT eosinophil,a bsolute 0.2 10*3/ uL 0.0-0. 8 normal Not Available [facility] [address] [place] [address], [address], 11/30/2024 13:16:28 11/30/19 25 11/30/2024 COMPL ETE BLOOD COUNT basophil,abs olute 0.0 10*3/ uL 0.0-0. 3 normal Not Available [facility] [address] [place] [address], [address], 11/30/2024 13:16:28 11/30/19 25 11/30/2024 COMPL ETE BLOOD COUNT % neutrophils 59.6 % 42.0-7 8.0 normal Not Available [facility] [address] [place] [address], [address], 11/30/2024 13:16:28 11/30/19 25 11/30/2024 COMPL ETE BLOOD COUNT % lymphocytes 30.6 % 11.0-4 7.0 normal Not Available [facility] [address] [place] [address], [address], 11/30/2024 13:16:28 11/30/19 25 11/30/2024 COMPL ETE BLOOD COUNT % monocytes 7.2 % 0.0-11 .0 normal Not Available [facility] [address] [place] [address], [address], 11/30/2024 13:16:28 11/30/19 25 11/30/2024 COMPL ETE BLOOD COUNT % eosinophils 2.1 % 0.0-7. 0 normal Not Available [facility] [address] [place] [address], [address], 11/30/2024 13:16:28 11/30/19 25 11/30/2024 COMPL ETE BLOOD COUNT % basophils 0.5 % 0.0-3. 0 normal Not Available [facility] [address] [place] [address], [address], 11/30/2024 13:16:28 11/30/19 25 11/30/2024 COMPL ETE BLOOD COUNT nucleated red cells 0.1 % 0.0-0. 9 normal Not Available [facility] [address] [place] [address], [address], 11/30/2024 13:16:28 11/30/19 25 11/30/2024 COMPL ETE BLOOD COUNT nucleated RBCs, absolute 0.01 10*3/ uL not estab. normal Not Available [facility] [address] [place] [address], [address], 11/30/2024 13:16:28 11/30/19 25 11/30/2024 ISAMAR TIN ferritin 328 NG/mL 30-400 normal Not Available [facility] [address] [place] [address], [address], 11/30/2024 13:30:17 11/30/19 25 11/30/2024 COMP. METAB OLIC PANEL glucose 98 mg/dL 74-100 normal Not Available [facility] [address] [place] [address], [address], 11/30/2024 13:30:19 11/30/19 25 11/30/2024 COMP. METAB OLIC PANEL blood urea nitrogen 12 mg/dL 6-20 normal Not Available [facility] [address] [place] [address], [address], 11/30/2024 13:30:19 11/30/19 25 11/30/2024 COMP. METAB OLIC PANEL creatinine 0.73 mg/dL 0.70-1 .28 normal Not Available [facility] [address] [place] [address], [address], 11/30/2024 13:30:19 11/30/19 25 11/30/2024 COMP. METAB OLIC PANEL BUN/creatini ne ratio 16 (calc ) 10-20 normal Not Available [facility] [address] [place] [address], [address], 11/30/2024 13:30:19 11/30/19 25 11/30/2024 COMP. METAB OLIC PANEL sodium 143 mmol/ L 136-14 5 normal Not Available [facility] [address] [place] [address], [address], 11/30/2024 13:30:19 11/30/19 25 11/30/2024 COMP. METAB OLIC PANEL potassium 3.3 mmol/ L 3.4-5. 0 low Not Available [facility] [address] [place] [address], [address], 11/30/2024 13:30:19 11/30/19 25 11/30/2024 COMP. METAB OLIC PANEL chloride 103 mmol/ L 98-107 normal Not Available [facility] [address] [place] [address], [address], 11/30/2024 13:30:19 11/30/19 25 11/30/2024 COMP. METAB OLIC PANEL carbon dioxide 27 mmol/ L 22-31 normal Not Available [facility] [address] [place] [address], [address], 11/30/2024 13:30:19 11/30/19 25 11/30/2024 COMP. METAB OLIC PANEL anion gap 13 (calc ) 7-25 normal Not Available [facility] [address] [place] [address], [address], 11/30/2024 13:30:19 11/30/19 25 11/30/2024 COMP. METAB OLIC PANEL calcium 9.1 mg/dL 8.6-10 .2 normal Not Available [facility] [address] [place] [address], [address], 11/30/2024 13:30:19 11/30/19 25 11/30/2024 COMP. METAB OLIC PANEL total protein 7.4 g/dL 6.4-8. 3 normal Not Available [facility] [address] [place] [address], [address], 11/30/2024 13:30:19 11/30/19 25 11/30/2024 COMP. METAB OLIC PANEL albumin 4.1 g/dL 3.5-5. 2 normal Not Available [facility] [address] [place] [address], [address], 11/30/2024 13:30:19 11/30/19 25 11/30/2024 COMP. METAB OLIC PANEL globulin 3.3 1.5-4. 5 normal Not Available [facility] [address] [place] [address], [address], 11/30/2024 13:30:19 11/30/19 25 11/30/2024 COMP. METAB OLIC PANEL albumin/glob ulin ratio 1.2 (calc ) 1.1-2. 5 normal Not Available [facility] [address] [place] [address], [address], 11/30/2024 13:30:19 11/30/19 25 11/30/2024 COMP. METAB OLIC PANEL bilirubin, total 0.8 mg/dL 0.1-1. 2 normal Not Available [facility] [address] [place] [address], [address], 11/30/2024 13:30:19 11/30/19 25 11/30/2024 COMP. METAB OLIC PANEL alkaline phosphatase 80 U/L 40-129 normal Not Available [facility] [address] [place] [address], [address], 11/30/2024 13:30:19 11/30/19 25 11/30/2024 COMP. METAB OLIC PANEL AST 19 U/L 0-40 normal Not Available [facility] [address] [place], [address], 11/30/2024 13:30:19 11/30/19 25 11/30/2024 COMP. METAB OLIC PANEL ALT 21 U/L 0-41 normal Not Available [facility] [address] [place] [address], [address], 11/30/2024 13:30:19 11/30/19 25 11/30/2024 COMP. METAB OLIC PANEL GFR 109 >= 60 normal NOT E New calcu latio n for GFR (CKD- EPI 2020) is formu lated witho ut race adjus tment facto rs at the recom menda tion of the [place] and [facility] [place] ty of Nephr ology . This calcu latio n has not been valid ated in pregn ant women . For pedia ezekiel patie nts refer to https ://silvano lugo.rei rg/pr brie eller s/KDO QI/gf r_cal culat orPed Not Available [facility] [address] [place] [address], [address], 11/30/2024 13:30:19 11/30/19 25 11/30/2024 IRON PANEL -TOTA L AND TIBC iron 75 ug/dL 59-158 normal Not Available [facility] [address] [place] [address], [address], 11/30/2024 13:30:20 11/30/19 25 11/30/2024 IRON PANEL -TOTA L AND TIBC total iron binding cap. 257 ug/dL _(zev c) 250-45 0 normal Not Available [facility] [address] [place] [address], [address], 11/30/2024 13:30:20 11/30/19 25 11/30/2024 IRON PANEL -TOTA L AND TIBC unsat.iron binding cap. 182 ug/dL 112-34 7 normal Not Available [facility] [address] [place] [address], [address], 11/30/2024 13:30:20 11/30/19 25 11/30/2024 IRON PANEL -TOTA L AND TIBC % saturation 29 %_(ca lc) 20-50 normal Not Available [facility] [address] [place] [address], [address], 11/30/2024 13:30:20 11/30/19 25 11/30/2024 URIC ACID uric acid 5.1 mg/dL 3.4-7. 0 normal Refer ence range s are based on [facility] norms and do not neces latoya bryant late with treat ment targe ts. In patie nts with an estab lishe d diagn osis of gout under going Urate Lower ing Thera py (ULT) , the 2011 Fadi can Colle ge of Rheum atolo gy Guid lizz s for Manag ement of Gout recom mend a targe t uric acid level of < 6 mg/dL in all patie nts, or lower in certa in circu mstan rosibel. Arthr itis Care and Resea [facility] Vol 64 No 10, 2011 Ameri can Colle ge of Rheum atolo gy ----- ----- ----- ----- ----- ----- ----- ----- ----- ----- ----- ---- Not Available [facility] [address] [place] [address], [address], 11/30/2024 13:30:21 11/30/19 25 11/30/2024 LIPID PROFI LE HDL cholesterol 39 mg/dL 40-242 low Not Available [facility] [place], [address], 11/30/2024 13:30:22 11/30/19 25 11/30/2024 LIPID PROFI LE triglyceride s 120 mg/dL 0-149 normal TRIGL YCERI DE RANGE S VADIM L: < 150 BORDE RLINE HIGH: 150 - 199 HIGH: 200 - 499 VERY HIGH: > OR = 500 Not Available [facility] [address] [place] [address], [address], 11/30/2024 13:30:22 11/30/19 25 11/30/2024 LIPID PROFI LE cholesterol 175 mg/dL 0-199 normal SHU STERO L (TOTA L) RANGE S MONICA ABLE: < 200 BORDE RLINE : 200 - 239 HIGHE R RISK: > 239 Not Available [facility] [address] [place] [address], [address], 11/30/2024 13:30:22 11/30/19 25 11/30/2024 LIPID PROFI LE LDL cholesterol 112 mg/dL _(zev c) 0-99 high LDL SHU STERO L RANGE S OPTIM AL: < 100 NEAR/ ABOVE OPTIM AL: 100 - 129 BORDE RLINE HIGH: 130 - 159 HIGH: 160 - 189 VERY HIGH: > OR = 190 Not Available [facility] [address] [place] [address], [address], 11/30/2024 13:30:22 11/30/19 25 11/30/2024 VITAM IN D 25-OH vitamin D 25-oh, total 38 NG/mL >=30 NG/mL normal Not Available [facility] [address] [place] [address], [address], 11/30/2024 16:49:15 11/30/19 25 11/30/2024 B12/F OLIC ACID PANEL folic acid 11.8 NG/mL 4.6-34 .8 normal Not Available [facility] [address] [place] [address], [address], 11/30/2024 16:49:17 11/30/19 25 11/30/2024 B12/F OLIC ACID PANEL vitamin B12 1933 pg/mL 232-12 45 high Not Available [facility] [address] [place] [address], [address], 11/30/2024 16:49:17 11/30/19 25 12/04/2024 VITAM IN B1 vitamin B1 12 nmol/ L 8-30 normal (Note ) Vitam in suppl ement atyaakov withi n 24 hours prior to blood draw may affec t the accur acy of the resul ts. This test was devel oped and its annette tical perfo rmanc e claribel cteri stics have been deter mined by [employer] ostic s. It has not been clear ed or appro jono by FDA. This assay has been valid ated pursu ant to the CLIA regul ation s and is used for clini zev purpo ses. MDF med fusio n [address] [facility] [address] [place] [address] [phone] Cortez Blakely MD, PhD Not Available [facility] [address] [place] [address], [address], 12/04/2024 21:34:40 07/06/20 25 07/06/2025 COMPL ETE BLOOD COUNT white blood cells 6.8 10*3/ uL 3.8-10 .8 normal Not Available [facility] [address] [place] [address], [address], 07/06/2025 14:00:16 07/06/20 25 07/06/2025 COMPL ETE BLOOD COUNT red blood cells 4.72 10*6/ uL 4.20-5 .80 normal Not Available [facility] [address] [place] [address], [address], 07/06/2025 14:00:16 07/06/20 25 07/06/2025 COMPL ETE BLOOD COUNT hemoglobin 14.2 g/dL 14.0-1 8.0 normal Not Available [facility] [address] [place] [address], [address], 07/06/2025 14:00:16 07/06/20 25 07/06/2025 COMPL ETE BLOOD COUNT hematocrit 42.1 % 40.0-5 2.0 normal Not Available [facility] [address] [place] [address], [address], 07/06/2025 14:00:16 07/06/20 25 07/06/2025 COMPL ETE BLOOD COUNT MCV 89 fL 80-100 normal Not Available [facility] [address] [place] [address], [address], 07/06/2025 14:00:16 07/06/20 25 07/06/2025 COMPL ETE BLOOD COUNT MCH 30 pg 26-35 normal Not Available [facility] [address] [place] [address], [address], 07/06/2025 14:00:16 07/06/20 25 07/06/2025 COMPL ETE BLOOD COUNT MCHC 34 g/dL 32-36 normal Not Available [facility] [address] [place] [address], [address], 07/06/2025 14:00:16 07/06/20 25 07/06/2025 COMPL ETE BLOOD COUNT RDW 13.8 % 11.0-1 5.0 normal Not Available [facility] [address] [place] [address], [address], 07/06/2025 14:00:16 07/06/20 25 07/06/2025 COMPL ETE BLOOD COUNT MPV 10.1 fL 6.2-10 .5 normal Not Available [facility] [address] [place] [address], [address], 07/06/2025 14:00:16 07/06/20 25 07/06/2025 COMPL ETE BLOOD COUNT platelet count 254 10*3/ uL 150-40 0 normal Not Available [facility] [address] [place] [address], [address], 07/06/2025 14:00:16 07/06/20 25 07/06/2025 COMPL ETE BLOOD COUNT neutrophil,a bsolute 3.9 10*3/ uL 1.6-8. 4 normal Not Available [facility] [address] [place] [address], [address], 07/06/2025 14:00:16 07/06/20 25 07/06/2025 COMPL ETE BLOOD COUNT lymphocyte,a bsolute 2.3 10*3/ uL 0.4-5. 1 normal Not Available [facility] [address] [place] [address], [address], 07/06/2025 14:00:16 07/06/20 25 07/06/2025 COMPL ETE BLOOD COUNT monocyte,abs olute 0.4 10*3/ uL 0.0-1. 2 normal Not Available [facility] [address] [place] [address], [address], 07/06/2025 14:00:16 07/06/20 25 07/06/2025 COMPL ETE BLOOD COUNT eosinophil,a bsolute 0.1 10*3/ uL 0.0-0. 8 normal Not Available [facility] [address] [place] [address], [address], 07/06/2025 14:00:16 07/06/20 25 07/06/2025 COMPL ETE BLOOD COUNT basophil,abs olute 0.0 10*3/ uL 0.0-0. 3 normal Not Available [facility] [address] [place] [address], [address], 07/06/2025 14:00:16 07/06/20 25 07/06/2025 COMPL ETE BLOOD COUNT % neutrophils 57.2 % 42.0-7 8.0 normal Not Available [facility] [address] [place] [address], [address], 07/06/2025 14:00:16 07/06/20 25 07/06/2025 COMPL ETE BLOOD COUNT % lymphocytes 34.0 % 11.0-4 7.0 normal Not Available [facility] [address] [place] [address], [address], 07/06/2025 14:00:16 07/06/20 25 07/06/2025 COMPL ETE BLOOD COUNT % monocytes 6.0 % 0.0-11 .0 normal Not Available [facility] [address] [place] [address], [address], 07/06/2025 14:00:16 07/06/20 25 07/06/2025 COMPL ETE BLOOD COUNT % eosinophils 2.2 % 0.0-7. 0 normal Not Available [facility] [address] [place] [address], [address], 07/06/2025 14:00:16 07/06/20 25 07/06/2025 COMPL ETE BLOOD COUNT % basophils 0.6 % 0.0-3. 0 normal Not Available [facility] [address] [place] [address], [address], 07/06/2025 14:00:16 07/06/20 25 07/06/2025 COMPL ETE BLOOD COUNT nucleated red cells 0.1 % 0.0-0. 9 normal Not Available [facility] [address] [place] [address], [address], 07/06/2025 14:00:16 07/06/20 25 07/06/2025 COMPL ETE BLOOD COUNT nucleated RBCs, absolute 0.01 10*3/ uL not estab. normal Not Available [facility] [address] [place] [address], [address], 07/06/2025 14:00:16 07/06/20 25 07/06/2025 ISAMAR TIN ferritin 338 NG/mL 30-400 normal Not Available [facility] [address] [place] [address], [address], 07/06/2025 14:25:20 07/06/20 25 07/06/2025 COMP. METAB OLIC PANEL glucose 94 mg/dL 74-100 normal Not Available [facility] [address] [place] [address], [address], 07/06/2025 14:25:22 07/06/20 25 07/06/2025 COMP. METAB OLIC PANEL blood urea nitrogen 17 mg/dL 6-20 normal Not Available [facility] [address] [place] [address], [address], 07/06/2025 14:25:22 07/06/20 25 07/06/2025 COMP. METAB OLIC PANEL creatinine 0.75 mg/dL 0.70-1 .20 normal Not Available [facility] [address] [place] [address], [address], 07/06/2025 14:25:22 07/06/20 25 07/06/2025 COMP. METAB OLIC PANEL BUN/creatini ne ratio 23 (calc ) 10-20 high Not Available [facility] [address] [place] [address], [address], 07/06/2025 14:25:22 07/06/20 25 07/06/2025 COMP. METAB OLIC PANEL sodium 143 mmol/ L 136-14 5 normal Not Available [facility] [facility] [address] [place] [address], [phone], 07/06/2025 14:25:22 07/06/20 25 07/06/2025 COMP. METAB OLIC PANEL potassium 3.9 mmol/ L 3.4-5. 0 normal Not Available [facility] [address] [place] [address], [address], 07/06/2025 14:25:22 07/06/20 25 07/06/2025 COMP. METAB OLIC PANEL chloride 105 mmol/ L 98-107 normal Not Available [facility] [address] [place] [address], [address], 07/06/2025 14:25:22 07/06/20 25 07/06/2025 COMP. METAB OLIC PANEL carbon dioxide 26 mmol/ L 22-31 normal Not Available [facility] [address] [place] [address], [address], 07/06/2025 14:25:22 07/06/20 25 07/06/2025 COMP. METAB OLIC PANEL anion gap 12 (calc ) 7-25 normal Not Available [facility] [address] [place] [address], [address], 07/06/2025 14:25:22 07/06/20 25 07/06/2025 COMP. METAB OLIC PANEL calcium 9.3 mg/dL 8.6-10 .2 normal Not Available [facility] [address] [place] [address], [address], 07/06/2025 14:25:22 07/06/20 25 07/06/2025 COMP. METAB OLIC PANEL total protein 7.0 g/dL 6.4-8. 3 normal Not Available [facility] [address] [place] [address], [address], 07/06/2025 14:25:22 07/06/20 25 07/06/2025 COMP. METAB OLIC PANEL albumin 4.2 g/dL 3.5-5. 2 normal Not Available [facility] [address] [place] [address], [address], 07/06/2025 14:25:22 07/06/20 25 07/06/2025 COMP. METAB OLIC PANEL globulin 2.8 1.5-4. 5 normal Not Available [facility] [address] [place] [address], [phone], 07/06/2025 14:25:22 07/06/20 25 07/06/2025 COMP. METAB OLIC PANEL albumin/glob ulin ratio 1.5 (calc ) 1.1-2. 5 normal Not Available [facility] [address] [place] [address], [phone], 07/06/2025 14:25:22 07/06/20 25 07/06/2025 COMP. METAB OLIC PANEL bilirubin, total 0.6 mg/dL 0.1-1. 0 normal NOTE: New refer ence range . Not Available [facility] [address] [place], [address], 07/06/2025 14:25:22 07/06/20 25 07/06/2025 COMP. METAB OLIC PANEL alkaline phosphatase 64 U/L 40-129 normal Not Available [facility] [address] [place], [address], 07/06/2025 14:25:22 07/06/20 25 07/06/2025 COMP. METAB OLIC PANEL AST 19 U/L 0-40 normal Not Available [facility] [address] [place], [address], 07/06/2025 14:25:22 07/06/20 25 07/06/2025 COMP. METAB OLIC PANEL ALT 20 U/L 0-41 normal Not Available [facility] [address] [place], [address], 07/06/2025 14:25:22 07/06/20 25 07/06/2025 COMP. METAB OLIC PANEL eGFR 107 >= 60 normal NOT E New calcu latio n for GFR (CKD- EPI 2020) is formu lated witho ut race adjus tment facto rs at the recom menda tion of the [facility] and [facility] . This calcu latio n has not been valid ated in pregn ant women . For pedia tric patie nts refer to https ://silvano wells.latanya lugo.o rg/pr brie eller s/KDO QI/gf r_cal culat orPed Not Available [facility] [address] [place], [address], 07/06/2025 14:25:22 07/06/20 25 07/06/2025 IRON PANEL -TOTA L AND TIBC iron 83 ug/dL 59-158 normal Not Available [facility] [address] [place], [address], 07/06/2025 14:25:23 07/06/20 25 07/06/2025 IRON PANEL -TOTA L AND TIBC total iron binding cap. 262 ug/dL _(zev c) 250-45 0 normal Not Available [facility] [address] [place] [address], [phone], 07/06/2025 14:25:23 07/06/20 25 07/06/2025 IRON PANEL -TOTA L AND TIBC unsat.iron binding cap. 179 ug/dL 112-34 7 normal Not Available [facility] [address] [place] [address], [address], 07/06/2025 14:25:23 07/06/20 25 07/06/2025 IRON PANEL -TOTA L AND TIBC % saturation 32 %_(ca lc) 20-50 normal Not Available [facility] [address] [place] [address], [address], 07/06/2025 14:25:23 07/06/20 25 07/06/2025 B12/F OLIC ACID PANEL folic acid >20.0 NG/mL 4.6-34 .8 normal Not Available [facility] [address] [place] [address], [address], 07/06/2025 16:48:15 07/06/20 25 07/06/2025 B12/F OLIC ACID PANEL vitamin B12 1835 pg/mL 232-12 45 high Not Available [facility] [address] [place] [address], [address], 07/06/2025 16:48:15 07/06/20 25 07/06/2025 VITAM IN D 25-OH vitamin D 25-oh, total 38 NG/mL >=30 NG/mL normal Not Available [facility] [address] [place] [address], [address], 07/06/2025 16:48:16 07/06/20 25 07/12/2025 VITAM IN B1 vitamin B1 189 nmol/ L 78-185 high (Note ) Vitam in suppl ement ation withi n 24 hours prior to blood draw may affec t the accur acy of the resul ts. This test was devel oped and its annette tical perfo rmanc e claribel cteri stics have been deter mined by [facility]. It has not been clear ed or appro jono by FDA. This assay has been valid ated pursu ant to the CLIA regul ation s and is used for clini zev purpo ses. MDF med fusio n [address] [facility] [address] [place] [address] [phone] Cortez l Jackson Blakely MD, PhD Not Available [facility] [address] [place] [address], [address], 07/12/2025 11:06:44 10/21/19 25 10/21/2024 US, lower leg [facility] [address] [place] [address] Patichrissy t Name: ALEJANDRO carrasco : [birth year] Patien t 00 Orderi ng Provid er: SALMA FISHER EXAM DATE: 2024 EXAM: US LT CALF LIMITE D NON VASCUL AR HISTOR Y: Fullne ss in the calf COMPAR LIBORIO: None. FINDIN GS: Multip le images were genera aby. There is an oval-s haped hypere choic lesion in the mid calf region , area of concer n. This measur es 2.4 x 2.4 x 0.9 cm. Additi onal surrou nding edemat ous tissue is presen t. The lesion in the calf is nonspe cific althou gh may indica te a lipoma as the echoge hi charac terist ics are fairly simila r to subcut aneous fat IMPRES ALBERT: 1. Probab le lipoma in the calf. There is surrou nding edemat ous tissue s theref ore consid er correl ating with an MRI Interp reted By: Salomón Jara MD Electr onical ly Signed By: Salomón Jara MD on 10/21/19 8:51 AM teresa [facility] [address], [place], [address], 10/22/2024 09:48:59 11/11/19 25 11/11/2024 MRI, lower leg, w/o contr ast [facility] [address] [facility] [place] [address] Patichrissy t Name: ALEJANDRO carrasco : [birth year] Patichrissy carrasco 00 Orderi ng Provid er: SALMA ROBERTSON ZACHARY EXAM DATE: 2024 EXAM: MR LT TIB-FI B/CALF WITHOU T CONTRA ST HISTOR Y: 54-yea r-old male with a mass along the left lower leg. COMPAR LIBORIO: None. FINDIN GS: 2 marker s are placed along the bottom scrubber ior aspect of the left calf corres pondin g to the palpab le abnorm ality. Betwee n these marker s, is an elonga aby and flatte david concen tratio n of fat signal superf icial to the muscle s of the calf in the subcut aneous tissue s. Overal l, this concen tratio n of fat measur es approx imatel y 14.5 cm cranio caudad , 5.4 cm transv erse and 8 mm AP. This mass measur es fat signal in all imagin g sequen rosibel and the signal suppre sses with fat satura tion techni ques. This is most charac terist ic of a benign lipoma . There is also an ill-de fined focus of fat betwee n the soleus and gastro cnemiu s muscle s. The muscle s of the calf are mildly atroph ic. There is no muscle edema. There is modera te diffus e subcut aneous edema. The neurov ascula r struct ures appear normal . There is a small poplit eal cyst. The left tibia and fibula are normal in alignm ent. There is no fractu re or pathol ogic intrao sseous lesion . There are modera te to severe degene rative change s in the knee. IMPRES ALBERT: 1. There is a probab le flat benign lipoma superf icial to the gastro cnemiu s muscle s in the left lower leg. 2. There is modera te diffus e subcut aneous edema and modera te to severe degene rative change s in the left knee. Interp reted By: Krystin colbert MD Electr on ly Signed By: Krystin colbert MD on 8:51 AM [facility] [address] [place] [address], [phone], 11/24/2024 13:49:07 Result Notes Documentation Provider Name and Address Organization Details Recorded Time Mri, Lower Leg, W/o Contrast : [id number] [place] [address] Patient Name: ALEJANDRO SCHWARTZ Patient : 1970 Patient Ordering Provider: RUBEN FISHER EXAM DATE: 11/11/2024 EXAM: MR LT TIB-FIB/CALF WITHOUT CONTRAST HISTORY: 54-year-old male with a mass along the left lower leg. COMPARISON: None. FINDINGS: 2 markers are placed along the posterior aspect of the left calf corresponding to the palpable abnormality. Between these markers, is an elongated and flattened concentration of fat signal superficial to the muscles of the calf in the subcutaneous tissues. Overall, this concentration of fat measures approximately 14.5 cm craniocaudad, 5.4 cm transverse and 8 mm AP. This mass measures fat signal in all imaging sequences and the signal suppresses with fat saturation techniques. This is most characteristic of a benign lipoma. There is also an ill-defined focus of fat between the soleus and gastrocnemius muscles. The muscles of the calf are mildly atrophic. There is no muscle edema. There is moderate diffuse subcutaneous edema. The neurovascular structures appear normal. There is a small popliteal cyst. The left tibia and fibula are normal in alignment. There is no fracture or pathologic intraosseous lesion. There are moderate to severe degenerative changes in the knee. IMPRESSION: 1. There is a probable flat benign lipoma superficial to the gastrocnemius muscles in the left lower leg. 2. There is moderate diffuse subcutaneous edema and moderate to severe degenerative changes in the left knee. Interpreted By: Michael Block MD N FISHER MD [address] [place] [address], [phone], [facility] 11/24/2024 13:49:07 Problems Name Problem SNOMED Code Status Onset Date Resolution Date Notes Provider Name and Address Organization Details Recorded Time Morbid obesity 187677778 Active 2021 RUBEN FISHER MD [address] [place] [address], [address], [facility] 3 17:35:49 Essential hypertens ion 28474955 Active 2021 RUBEN FISHER MD [address] [place] [address], [address], [facility] 3 17:35:49 Gout 38013075 Active 2021 RUBEN FISHER MD [address] [place] [address], [address], [facility] 3 17:35:49 Recurrent major depressio n in partial remission 07871681 Active 2021 RUBEN FISHER MD [address] [place] [address], [address], [facility] 3 17:35:49 Acquired pes planus of right foot 533100434530 106 Active 2021 RUBEN FISHER MD [address] [place] [address], [address] 1, [facility] 2 09:10:22 Acquired pes planus of left foot 875119441863 108 Active 2021 RUBEN FISHER MD [address] [place] [address], [address], [facility] 2 09:10:24 Insomnia 973976002 Active 2021 RUBEN FISHER MD [address] [place] [address], [address], [facility] 3 17:35:49 History of pulmonary embolus 078448647 Active 2023 RUBEN FISHER MD [address] [place] [address], [address], [facility] 4 11:10:16 History of bariatric surgical procedure 142798414 Active 2023 duodenal switch 01/2024 RUBEN FISHER MD [address] [place] [address], [address], [facility] 4 17:00:26 Sleep apnea 37153819 Active 2024 Balbina Lamb [facility], [facility] 5 08:29:20 Problem Notes Documentation Provider Name and Address Organization Details Recorded Time General Surgeon Consult Note : [facility] [address] [facility] [id number], Louis E (id #[id number], : 1970) [facility] SUR[facility] [address] [place] [address] Date: 12/07/2024RE: Alejandro Schwartz, : 1970, PT ID #[id number] Fisher MD, I would like to thank you for referring Alejandro Schwartz to our practice for consultation and evaluation. I have enclosed a copy of the office evaluation for your records. Sincerely, Electronically Signed by: PATTI ARREGUIN MDEncounter Reason/DateTransition of Care Encounter 12/07/2024 - 08:30AM - GENERAL SURGERY SB History of Present [id number] male seen for evaluation with concern for left lower extremity palpable subcutaneous mass. Reports a prior history of duodenal switch procedure done in [facility] in 2023. Was on Eliquis following that procedure. States he subsequently stopped the Eliquis and then was in an airplane and ultimately developed bilateral lower extremity DVTs and PEs for which she was restarted on Eliquis. He states he stopped his Eliquis last week again. In that time he states he feels like he developed this palpable mass in the subcutaneous tissues in the left lower extremity. Denies any pain with ambulation but occasionally will have some discomfort if this area ever hits up against something. Underwent MRI of the lower extremity which noted a probable flat lipoma above the gastrocnemius muscle. Also noted lower extremity edema. He denies any overlying skin changes. Denies previous excision. Denies any nausea vomiting change in bowel habits. Denies fevers chills chest pain or shortness of breath. States he does have upcoming knee surgeries planned this springReview of SystemsROS as noted in the HPIPhysical ExamConstitutional: General Appearance: healthy-appearing, well-nourished, and well-developed. Psychiatric: normal mood and affect, active and alert. Orientation: to time, place, and person. Head: normocephalic and atraumatic. Eyes: no discharge or pallor and non-injected. PERRLA. EOM intact. corneas: grossly intact. Neck: supple. Lungs: non labored. no dyspnea. good air movement and no wheezing. Cardiovascular: RRR. Abdomen: no tenderness, no guarding, soft and non-distended. No hepatosplenomegaly Musculoskeletal: normal tone and motor strength. normal movement of all extremities. no edema. Neurologic: Gait and Station: normal gait and station. Cranial Nerves: grossly intact. Skin: Palpable fullness in the left posterior lower extremity as well as subcutaneous edema Procedure DocumentationNone recordedAssessment/Plan1. Mass of subcutaneous tissue of left lower djnr-57-lern-old male seen for evaluation with concern for lipoma in the left lower extremity. MRI imaging personally reviewed and do suspect may be a small discrete lipoma. On exam there is a small area of palpable fullness but also some significant lower extremity edema. Discussed surgical excision versus observation. He does have upcoming bilateral knee surgeries through the spring already planned. Discussed that he is at some higher risk of infection and would not want to delay his upcoming knee surgeries if the area does not significantly bother him or warrant further excision. At this point would plan on observing this. Will plan for follow-up after his knee surgeries for consideration of excision.R22.42: Localized swelling, mass and lump, left lower limb Return to Office RUBEN FISHER MD for RECHECK at [facility] on 03/02/2025 at 03:30 PM to see PATTI ARREGUIN MD for RECHECK at GENERAL SURGERY on or around 12/07/2025 RUBEN FISHER MD [address] [place] [address], [phone], [facility] 12/07/2024 10:14:04 Procedures Surgical History Date Name Laterality Status Provider Name and Address Organization Details Recorded Time 4 EKG completed RUBEN FISHER MD [address] [place], [address], [facility] 02/25/2024 10:37:30 4 bariatric operative procedure completed Balbina Jaimesown [facility] 12/07/2024 08:31:24 3 Cerumen removal - Irrigation, Unilateral completed JUAN LUIS ORANTES APRN [address] [place], [address], [facility] 05/07/2023 10:10:54 0 Colonoscopy completed Rachel Mathew [facility] 08/29/2022 09:19:33 Imaging Results None recorded. Procedure Notes None recorded. Medical Equipment None Reported. Allergies No known drug allergies Medications Name Sig Start Date Stop Date Status Note LastModified by Organization Details LastModified Time atorvasta tin 20 mg tablet 03/06 completed Not Available Not Available Not Available cetirizin e 10 mg tablet TAKE 1 TABLET BY MOUTH EVERY DAY 2024 active Not Available Not Available Not Avai lable hydrocodo ne 5 mg-acetam inophen 325 mg tablet TAKE 1 TO 2 TABLETS BY MOUTH EVERY 4 TO 6 HOURS NEEDED FOR PAIN active Not Available Not Available No t Available allopurin ol 100 mg tablet TAKE 1 TABLET BY MOUTH DAILY 2024 active Not Available Not Available Not Avai lable omeprazol e 40 mg capsule,d elayed release TAKE 1 CAPSULE BY MOUTH EVERY DAY 2024 active Not Available Not Available Not Avai lable tramadol 50 mg tablet TAKE 1-2 TABLETS BY MOUTH 6-8 MAXIMUM DAILY DOSE IS 6 TABLETS active Not Available Not Available No t Available benzonata te 100 mg capsule Take 1 capsule 3 times a day by oral route as needed. 03/06 completed Not Available Not Available Not Available hydrocodo ne 7.5 mg-acetam inophen 325 mg tablet TAKE 1-2 TABLETS BY MOUTH EVERY 4-6 HOURS NEEDED PAIN 06/04 completed Not Available Not Available Not Available oseltamiv ir 75 mg capsule Take 1 capsule twice a day by oral route. 12/01 completed Not Available Not Available Not Available clotrimaz ole-betam ethasone 1 %-0.05 % topical cream APPLY TO THE AFFECTED AND SURROUND ING AREAS OF SKIN BY TOPICAL ROUTE 2 TIMES PER DAY active Not Available Not Available No t Available omeprazol e 20 mg capsule,d elayed release Take 1 capsule every day by oral route. 06/26 completed Not Available Not Available Not Available nystatin 100,000 unit/gram topical powder APPLY TO THE AFFECTED AREA(S) BY TOPICAL ROUTE 2 TIMES PER DAY active Not Available Not Available No t Available cefdinir 300 mg capsule TAKE 1 CAPSULE BY MOUTH EVERY 12 HOURS FOR 7 DAYS 02/03 completed Not Available Not Available Not Available losartan 100 mg tablet TAKE 1 TABLET BY MOUTH DAILY 02/27 completed Not Available Not Available Not Available fluoxetin e 20 mg capsule TAKE 1 CAPSULE BY MOUTH DAILY 02/27 completed Not Available Not Available Not Available amoxicill in 875 mg-potass ium clavulana te 125 mg tablet TAKE 1 TABLET BY MOUTH EVERY 12 HOURS FOR 7 DAYS 03/20 completed Not Available Not Available Not Available oxycodone 5 mg tablet TAKE 1-2 TABLETS EVERY 4-6 HOURS MAXIMUM DAILY DOSE IS 9 TABLETS 06/04 completed Not Available Not Available Not Available Vitamin C active Not Available Not Daisy ilable Not Available Co Q-10 active Not Available Not Avail able Not Available calcium 12/07 completed Not Available Not Available Not Available zinc active Not Available Not Availa ble Not Available Fish Oil 02/27 completed Not Available Not Available Not Available Vitamin D 1000 UI 12/07 completed Not Available Not Available Not Available Vitamin B12 500 MCG QD 12/07 completed Not Available Not Available Not Available calcium 250 mg (as citrate) tablet Take 1 tablet every day by oral route. active 12/07/24 Patient states Calcium Citrate 500mg with Vit D 12.5mcg Chewable X 3 a day Not Available Not Available Not Available Calcium 500 With D 500 mg-10 mcg (400 unit) tablet Take 1 tablet 3 times a day by oral route. active Not Available Not Available No t Available melatonin 5 mg tablet Take 2 tablets every day by oral route at bedtime, for sleep. active Not Available Not Available No t Available multivita min and minerals no.11-fol ic acid 5 mg tablet Take 1 tablet every day by oral route. active 12/07/24 Patient states this is Emerge bariatri c Multi Vitamin Not Available Not Available Not Available melatonin 10 mg tablet Take 1 tablet every day by oral route at bedtime, for sleep. 2024 active Not Available Not Available Not Avai lable Eliquis 5 mg tablet TAKE 1 TABLET BY MOUTH TWICE DAILY 12/01 completed Not Available Not Available Not Available Eliquis 2.5 mg tablet TAKE 1 TABLET BY MOUTH TWICE DAILY active Not Available Not Available No t Available turmeric 100 mg-terrence 150 mg-olive 50 mg-oreg 150 mg-capryl capsule Take by oral route. 02/27 completed Not Available Not Available Not Available Wegovy 0.25 mg/0.5 mL subcutane ous pen injector Inject 0.25 mg every week by subcutan eous route for 30 days. 10/25 completed Not Available Not Available Not Available [facility] COVID-19 Antigen Rapid Home Test kit USE DIRECTED NEEDED active Not Available Not Available No t Available calcium 500 mg (as citrate)- vit D3 12.5 mcg (500 unit) chewable tablet Take 1 tablet 3 times a day by oral route. 2024 active Not Available Not Available Not Avai laberin vitamin B complex oral liquid Take by oral route. active Patient states organic B complex 20,000 Not Available Not Available Not Available Vitals Date Recorded Body height Body mass index (BMI) Body weight Oxygen saturation Oxygen saturation in Arterial blood by Pulse oximetry Heart rate Respiratory rate Body temperature Systolic And Diastolic Provider Name and Address Organization Details Last Updated DateTime 5 175.26 cm 47.4 kg/m2 025541. 15 g 97 % 97 % 49 /min 16 /min 99.2 [degF] 158/88 mm[Hg] Yin Le [facility] 5 10:23:41 Date Recorded Body height Body mass index (BMI) Body weight Oxygen saturation Oxygen saturation in Arterial blood by Pulse oximetry Heart rate Respiratory rate Systolic And Diastolic Provider Name and Address Organization Details Last Updated DateTime 5 175.26 cm 47.1 kg/m2 816300. 97 g 98 % 98 % 58 /min 16 /min 120/78 mm[Hg] [facility] 5 09:33:25 Date Recorded Body height Body mass index (BMI) Body weight Heart rate Systolic And Diastolic Provider Name and Address Organization Details Last Updated DateTime 12/07/2024 175.26 cm 47 kg/m2 994322.3 7 g 53 /min 103/56 mm[Hg] Balbina Lamb [facility] 12/07/2024 08:29:47 Date Recorded Body height Body mass index (BMI) Body weight Oxygen saturation Oxygen saturation in Arterial blood by Pulse oximetry Heart rate Respiratory rate Systolic And Diastolic Provider Name and Address Organization Details Last Updated DateTime 175.26 cm 42.7 kg/m2 065376. 19 g 99 % 99 % 56 /min 16 /min 110/70 mm[Hg] [facility] 15:19:42 Date Recorded Body height Body mass index (BMI) Body weight Oxygen saturation Oxygen saturation in Arterial blood by Pulse oximetry Heart rate Respiratory rate Body temperature Systolic And Diastolic Provider Name and Address Organization Details Last Updated DateTime 175.26 cm 40.6 kg/m2 797205. 9 g 98 % 98 % 62 /min 16 /min 98.2 [degF] 120/80 mm[Hg] [facility] 15:14:51 Social History Question Answer Notes LastModified by [employer] Details LastModified Time Tobacco Smoking Status Never Smoker RUBEN FISHER MD [address] [place] [address], [phone] 08/29/2022 09:13:27 What Was The Date Of Your Most Recent Tobacco Screening? 12/01/2024 [email or web address] Information not available 12/01/2024 How Many Children Do You Have? -1 Information not available 08/29/2022 What Is Your Relationship Status? Information not available 08/29/2022 Are You Sexually Active? Yes Information not available 08/29/2022 Sex: Male Functional Status Question Answer Note LastModified by Organizat ion Details LastModified Time Do you use any illicit or recreational drugs? No Information not available 08/29/2022 Do you or have you ever used any other forms of tobacco or nicotine? No Information not available 08/29/2022 What is your level of alcohol consumption? None Information not available 08/29/2022 Are you currently employed? 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 [id number] Information not available 08/29/2022 Family History Relationship Description Onset Age of this Age Resolved Age Notes LastModified by Organization Details LastModified Time Father Malignant neoplasm of pancreas [email or web address] Not available 2021 09:13:07 Medical History Condition Response Diabetes N Allergies/Hayfever Y Coronary Artery Disease N Other N Thyroid Disease N Congestive Heart Failure (CHF) N Gallbladder Disease N Diverticulitis N Stroke N Asthma N Depression Y COPD N Crohn's Disease N Colon Polyps N High Cholesterol Y Liver Disease N Heart Attack ([place]) N Heart Disease N Pulmonary Embolism Y Hypertension Y Kidney Disease N Immunizations Vaccine Type Date Status Note Provider Nam e and Address Organization Details Recorded Time influenza, unspecified formulation 07/14/2019 completed Yinjavon Le [facility] 01/24/2024 09:07:01 Influenza, split virus, quadrivalent, PF 07/20/2020 completed Yin Le [facility] 01/24/2024 09:07:01 Past Encounters Encounter ID Performer Location Encounter Start Date Encounter Closed Date Diagnosis/Indication Diagnosis SNOMED-CT Code Diagnosis ICD10 Code Diagnosis IMO Codes Diagnosis Note [id number] RUBEN FISHER MD [address] [place] [address] 08/29/2022 07:51:08 08/30/2022 14:10:50 Morbid obesity 580983319 E66.01 discussed weight loss, diethe will try to resume [employer] program which helped before Essential hypertension 22242210 I10 check labscontin ue meds Gout 12762540 M10.9 Recurrent major depression in partial remission 04016949 F33.41 discussed biologic, social, emotional and spiritual contributo rs to depression PHQ 9 10 today, recommend continuing medication He will also pursue [facility] recheck 3 months Acquired p es planus of right foot [id number] 96691 M21.41 custom shoes prescribed Acquired p es planus of left foot 3284039199 20126 M21.42 custom shoes prescribed Insomnia 980656722 G47.0 0 may be secondary to depression will try melatonin Hyperlipidemia 23585426 E78.5 due for labscontin ue atorvastat in [id number] RUBEN FISHER MD [address] [address] 11/20/2022 14:14:36 11/20/2022 15:14:15 Hyperkalemia 80538191 E87.5 mild elevation of potassium previously , will recheck Essential hypertension 08724264 I10 check labscontin ue meds Morbid obesity 258096940 E66.01 discussed weight loss, diethe wants to continue [employer] program which helped beforeWe reviewed options of surgery, GLP-1 agonists, other oral medsalso encouraged exercise 150 minutes weekly of moderate exercise [id number] JUAN LUIS ORANTES APRN [address] [address] 05/07/2023 09:37:28 05/07/2023 12:35:27 Acute right otitis media 392119745 H66.91 Impacted c erumen in left ear 5386627635 497726 H61.22 irrigation completed [id number] RUBEN FISHER MD [address] [address] 05/24/2023 15:48:30 05/24/2023 16:30:15 Morbid obesity 918570324 E66.01 discussed weight loss, diethe wants to continue [employer] program which helped beforeWe reviewed options of surgery, GLP-1 agonistsHe wants to try Wegovywill try to get it approvedwi ll recheck in 2-3 months and adjust dose as tolerateda lso encouraged exercise 150 minutes weekly of moderate exercise Essential hypertension 99675539 I10 stablecont inue losartan [id number] RUBEN FISHER MD [address] [address] 10/25/2023 07:52:39 10/25/2023 09:01:05 Morbid obesity 013506072 E66.01 discussed weight loss, dietdiscus sed risks and benefits of proposed surgery, including risks of medical tourismHe is a candidate for bariatric surgery based on extreme obesity, failure of other trreatment s and comorbid severe DJD in kneesWill check recommende d pre-op labs from his surgery center Screening for malignant neoplasm of prostate 856763777 Z12.5 Father had prostate CA 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 Be sure to complete medication , even if you are feeling better. Take tylenol/ib uprofen as needed for discomfort . If symptoms persist or worsen, return to clinic as discussed. Patient agreeable to plan. Pre-surger y evaluation 109005236 Z01.818 Will call with lab results. [id number] RUBEN FISHER MD [address] [address] 01/24/2024 08:56:58 01/24/2024 09:52:33 Morbid obesity 059107473 E66.01 discussed risks and benefits of proposed surgery, including risks of medical tourismHe is a candidate for bariatric surgery based on extreme obesity, failure of other treatments and comorbid severe DJD in kneesPre-o p labs reviewedWi ll see him as scheduled 02/04/24 Essential hypertension 36089285 I10 stablecont inue losartan Acute left otitis media 131234958 H66.92 improvingc omplete antibiotic [id number] RUBEN FISHER MD [address] [address] 02/04/2024 08:39:52 02/04/2024 10:08:05 History of bariatric surgical procedure 280098798 Z98.84 He seems to be making appropriat e progresswi ll keep off work until 02/23/24He is concerned about needing to gt to bathroom which is difficult 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 I asked for accommodat ion if needed if he is having frequent BMs still at that pointwill recheck here 4-6 weeks Essential hypertension 91637672 I10 stablecont inue to hold losartan for now and will resume if BP starts to go up [id number] RUBEN FISHER MD [address] [address] 02/25/2024 09:45:09 02/25/2024 10:45:03 Dyspnea 470757521 R06.00 He has some cough and rhinorrhea but dyspnea and hypoxia out of proportion for URI or RADwith his recent bariatric surgery, needs prompt eval for possible PE, pneumoniaH e will also need prompt labs to r/o anemia, [place], CHF causing dyspneaWil l send to ER by EMSHe [facility] discussed with EZEQUIEL Gamez in ER [id number] RUBEN FISHER MD [address] [address] 03/06/2024 13:54:06 03/10/2024 08:42:46 Allergic rhinitis 36613378 J30.9 Acute sinusitis 76878533 J01.90 History of pulmonary embolus 666338546 Z86.711 continue eliquis History of deep vein thrombosis 102328262 Z86.718 continue eliquis Insomnia 680648101 G47.0 0 he has used melatonin in the past with reliefwill refill [id number] RUBEN FISHER MD [address] [address] 04/03/2024 14:46:14 04/03/2024 15:35:37 History of pulmonary embolus 505270499 Z86.711 continue eliquis for a total of 6 months History of bariatric surgical procedure 728930794 Z98.84 continue vitamin supplement slast thiamine level low normalwill repeat at follow up in 2 months [id number] RUBEN FISHER MD [address] [address] 06/26/2024 13:30:39 06/26/2024 17:14:24 Gastroesophageal reflux disease without esophagitis 373906041 K21.9 will increase omeprazole to 40 mg daily Morbid obesity 812342296 E66.01 continues to loose weight after surgery History of pulmonary embolus 227422274 Z86.711 continue eliquis for a total of 6 monthsWe will see him in though his PE was likely provoked by surgery, consider hypercoagu lable eval after stopping Eliquis since he had standard anticoagul ation and then presented after that was stopped after the initial post-op period History of bariatric surgical procedure 529162364 Z98.84 [id number] MARTI RINALDI APRN SAME DAY [address] [employer] [place] [address] 10/13/2024 08:09:50 10/13/2024 08:52:42 Has a sore throat 791765256 J02.9 Patient with a sore throatDisc ussed most likely viral in originReco mmended Warm salt water gargles, taking an AH such as zyrtec to help with any post-nasal drainage that may be causing throat pain, humidifier in bedroom, hot tea with honey, lidocaine throat lozenges can also help. Will call patient with results.RT C precaution s discussed Elevated blood-pressure reading without diagnosis of hypertension 834025973 R03.0 BP rechecked in clinic 134/71Look ed over home BP cuff manual for instructio ns on how to calibrateR ecommended he stop by pharmacy to see if they have any helpful adviceEduc ated patient correct way to take BP at home with positionin g and cuff placementF /u with PCP saturday Middle ear effusion 1004 586081 H74.8X9 Discussed the use of flonase and how to properly use itWarm compresses [id number] RUBEN FISHER MD [address] [employer] [place] [address] 10/16/2024 09:52:32 10/16/2024 11:54:07 Influenza caused by Influenza A virus 814015468 J09.X2 with his risks for deteriorat ion, including obesity, history of PE, will uses tamifluFol low up if not better 1 week, sooner if new or worse symptoms Localized swelling of left lower limb 6357490849 7903629 R22.42 mass is fairly superficia l but does not appeat to be abscess. Will obtain US to better characteri ze it Candidiasis of skin 4940 3006 B37.2 will use clotrimazo le- betamethas one since that usually helpsthen follow with nystatin powder to try to prevent recurrence History of bariatric surgical procedure 173631816 Z98.84 he will have labs we have ordered done when he has labs for hypercoagu lable eval done, unless he stays on eliquis until after knee surgery, in which case he will go ahead with these History of pulmonary embolus 387609099 Z86.711 He completed eliquis for a total of 6 monthsAlth ough his PE was likely provoked by surgery, consider hypercoagu lable eval after stopping Eliquis since he had standard anticoagul ation and then presented after that was stopped after the initial post-op periodHe is seeing orthopedic s next week to consider TKR. Will continue Eliquis until timing of TKR known since he may be going back on it post-op for a period of time Osteoarthr itis of knee 686271095 M17.9 [id number] RUBEN FISHER MD [address] [address] 12/01/2024 08:55:06 12/01/2024 10:38:47 Candidiasis of skin 87353838 B37.2 continue nystatin powder to try to prevent recurrence Gastroesop hageal reflux disease without esophagitis 562071978 K21.9 will continue omeprazole to 40 mg daily Mass of lower limb 28945 7000 R22.42 Imaging seems benign but PE doesn't really fit with lipomawill have general surgery eval for possible excision Adult heal th examination 257808126 Z00.00 discussed ongoing weight loss efforts Morbid obesity 140192241 E66.01 continues to loose weight after surgery Osteoarthr itis of knee 023153156 M17.9 discussed upcoming planned knee surgeriesd iscussed need to be surgeon aware of prior post-op PE, may need more aggressive post-op anticoagul ation [id number] PATTI ARREGUIN MD [facility] [address] [place] [address] 12/07/2024 07:47:59 12/08/2024 12:22:07 Mass of subcutaneous tissue of left lower limb 7757364791 0855276 R22.42 54-year-ol d male seen for evaluation with concern for lipoma in the left lower extremity. MRI imaging personally reviewed and do suspect may be a small discrete lipoma. On exam there is a small area of palpable fullness but also some significan t lower extremity edema. Discussed surgical excision versus observatio n. He does have upcoming bilateral knee surgeries through the spring already planned. Discussed that he is at some higher risk of infection and would not want to delay his upcoming knee surgeries if the area does not significan tly bother him or warrant further excision. At this point would plan on observing this. Will plan for follow-up after his knee surgeries for considerat ion of excision. [id number] RUBEN FISHER MD [address] [address] 03/02/2025 15:12:55 03/02/2025 15:55:16 Insomnia 643406035 G47.00 he has used melatonin in the past with relief, will continue Candidiasis of skin 4988 3006 B37.2 continue nystatin powder to try to prevent recurrence Morbid obesity 507547639 E66.01 continues to loose weight after surgery History of pulmonary embolus 513956064 Z86.711 continue eliquis until after upcoming surgery [id number] RUBEN FISHER MD [address] [address] 06/04/2025 15:04:00 06/04/2025 15:59:44 History of bariatric surgical procedure 850916904 Z98.84 due for labs History of operative procedure on knee 252738882 Z96.653 [id number] he is doing well History of pulmonary embolus 810217009 Z86.711 He is 8 weeks out from 2nd TKR. He is only on 2.5 mg Eliquis daily per ortho because of some bloody joint effusion. He could stop eliquis at this point. He asked to continue until his flight to [place] and back in early June which is reasonable with his history Health Concerns Section Related Observation LastModified by Organization Eric martinez LastModified Time None Recorded Concern Status LastModified by Organization Details LastModified Time None Recorded Advance Directives Directive None Recorded Payers Insurance Date Sequence Insurance Name Policy Number Policy Parson Covered Member ID Parson Member ID Guarantor Name 07/13/2025 1 [place] [id number] Alejandro Mien [id number] Alejandro Meza Lana 07/13/2025 2 [employer] (MEDICAID REPLACEMENT - HMO) Alejandro Meza Lana [id number] Alejandro Derrick Lana 03/22/2025 3 [place] [facility] - FFS/TRADITIONA L Alejandro Meza Lana [id number] Alejandro Schwartz 11/01/2024 PAYMENT PLAN Alejandro Schwartz 11/28/2023 PAYMENT PLAN Alejandro Derrick Lana Notes Date Note Type Note Provider Name and Address Organization Details Recorded Time 10/16/2024 text/html ROS as noted in the HPI Pt. c/o rash on R side of breast, comes and goes. Itchy, occasional burning. Improves with clotrimazole-betametha sone cream his has knot on L calf x 2 months, tender. No trauma c/o sore throat,ears feel like there is fluid build-up, nasal congestionSeen in same-day care 10/13, RST negNo feverNo coughNo chest painNo dyspnea He has continued to feel well since his bariatric surgery, weight down 30 more lbs since last visit He has a post-op PE, recovering wellNo prior PENo FH clotting issuesHe is interested in going off eliquis RUBEN FISHER MD [address] [place] [address], [phone], [facility] 10/16/2024 12:58:51 12/01/2024 text/html ROS as noted in the HPI Scheduled for bilat TKRright knee January 06, left knee March 17 Stopped eliquis last week. Had been on it since perioperative PE after his gastric bypass last year Left calf mass - painful - for several monthsHe notes no change in size recentlyUS and subsequent MRI suggest subcutaneous mass superficial to underlying muscle consistent with flat benign lipoma His weight loss has slowed, but still down 110 pounds since surgery RUBEN FISHER MD [address] [place] [address], [phone], [facility] 12/01/2024 20:03:38 12/07/2024 text/html ROS as noted in the HPI 54-year-old male seen for evaluation with concern for left lower extremity palpable subcutaneous mass. Reports a prior history of duodenal switch procedure done in [facility] in 2023. Was on Eliquis following that procedure. States he subsequently stopped the Eliquis and then was in an airplane and ultimately developed bilateral lower extremity DVTs and PEs for which she was restarted on Eliquis. He states he stopped his Eliquis last week again. In that time he states he feels like he developed this palpable mass in the subcutaneous tissues in the left lower extremity. Denies any pain with ambulation but occasionally will have some discomfort if this area ever hits up against something. Underwent MRI of the lower extremity which noted a probable flat lipoma above the gastrocnemius muscle. Also noted lower extremity edema. He denies any overlying skin changes. Denies previous excision. Denies any nausea vomiting change in bowel habits. Denies fevers chills chest pain or shortness of breath. States he does have upcoming knee surgeries planned this spring PATTI ARREGUIN MD [address] [place] [address], [phone], [facility] 12/07/2024 09:34:22 03/02/2025 text/html ROS as noted in the HPI Follow up chronic problems He underwent right TKR January 08He is improving slowlyHe has left TKR scheduled Marche had post-op PE after gastric bypass last year so is on prophylactic Eliquis 2.5 mg BID and will continue for 8 weeks post-op his next TKRHe has continued to lose weight after gastric bypass, down almost 200 lb from peak weight. Weight loss a little slower recently since he is more sedentary after surgeryHe has some recurrent candidiasis in skin folds since his weight loss, controlled with nystatin powder RUBEN FISHER MD [address] [place] [address], [phone], [facility] 03/02/2025 16:55:58 06/04/2025 text/html ROS as noted in the HPI F/U on bilateral knee replacementDoing wellLeft knee March, Right knee some fluid drained right knee and it is much betterOn eliquis just 2.5 mg daily per orthopedicsHe has history PE after duodenal switch procedure in January4Continues to lose weight after duodenal switch, down about 150 lbsNo chest pain, dyspnea or edemaOff BP meds RUBEN FISHER MD [address] [place], [phone], [facility] 06/04/2025 19:49:33
[2025-08-17 15:53] LABS: Hematocrit 44.0 % (42.0-52.0); Hemoglobin 15.0 g/dL (14.1-18.0); Immature Granulocytes % 0.4 %; Mean Corpuscular HGB Conc 34.1 g/dL (31.8-35.4); Mean Corpuscular Hemoglobin 30.5 pg (27.0-31.2); Mean Corpuscular Volume 89.6 fl (80-94); Nucleated Red Blood Cells % 0 %; Platelet Count 328 K/mm3 (142-424); Red Blood Count 4.91 M/mm3 (4.60-6.20); Red Cell Distribution Width-SD 43.3 fL; White Blood Count 8.5 K/mm3 (4.8-10.8)
[2025-08-17 16:12] LABS: Activated Partial Thrombo Time 25.1 seconds (22.8-30.6); INR 1.03 (0.9-1.1); Prothrombin Time 11.4 seconds (10.1-12.5)
== END 2025-08-17 23:59 | disposition home or self-care (01) ==
PROVIDERS: PCP Family Medicine; Visit Provider Internal Medicine Medical Oncology
DX: M25.00 Hemarthrosis, unspecified joint (principal)
CPT/HCPCS: 36415; 85025; 85610; 85730